=== PATIENT | female | born 1995 | race Caucasian/White ===

== ENCOUNTER 2017-11-27 19:35 | Emergency (ER) | payer MEDICAID ==
[~2017-11-27] VITALS: Ht 162.6 cm; Wt 100.0 kg
[~2017-11-27 19:35] MED LIST: IBUPROFEN600 MG PO; PERCOCET 5-3251 TAB PO
[2017-11-27 19:43] VITALS: Ht 162.6 cm; Wt 100.0 kg
[2017-11-27 21:08] LABS: HCG URINE NEGATIVE (NEGATIVE)
[2017-11-27] MEDS ORDERED: VOLTAREN75 MG PO (21:26)
[2017-11-27 21:48] VITALS: BP 139/88
== END 2017-11-27 21:49 | disposition home or self-care (01) ==
LOC: D.ER 19:35
PROVIDERS: Family Medicine
DX: M79.601 Pain in right arm (principal); M79.604 Pain in right leg; W01.0XXA Fall on same level from slipping, tripping and stumbling without subsequent striking against object, initial encounter; Y93.89 Activity, other specified; Y92.019 Unspecified place in single-family (private) house as the place of occurrence of the external cause